=== PATIENT | male | born 1995 | race Two or more races ===

== ENCOUNTER 2024-01-20 02:10 | Emergency (ER) | payer OTHER ==
[~2024-01-20] VITALS: Ht 175.3 cm; Wt 101.4 kg
[2024-01-20] MEDS ORDERED: IBUP-2077 PO (02:18)
[2024-01-20 03:51] LABS: APPEARANCE,URINE CLEAR (CLEAR); BILIRUBIN,URINE NEGATIVE (NEGATIVE); COLOR,URINE LIGHT YELLOW (YELLOW); GLUCOSE, URINE (UA) NEGATIVE (NEGATIVE); KETONES,URINE NEGATIVE (NEGATIVE); LEUKOCYTE ESTERASE ,URINE LARGE (NEGATIVE); NITRATE,URINE NEGATIVE (NEGATIVE); OCCULT BLOOD,URINE NEGATIVE (NEGATIVE); PH,URINE 5.5 (5.0-8.0); PROTEIN,URINE NEGATIVE (NEGATIVE); SPECIFIC GRAVITIY, URINE 1.012 (1.003-1.030); UROBILINOGEN,URINE <=1.0 mg/dL (<=1.0)
[2024-01-20 04:08] LABS: BACTERIA,URINE None Seen /HPF (None Seen); RBC,URINE None Seen /HPF (0-2); SQUAMOUS EPITHELIAL CELL,UR None Seen /LPF (None Seen)
[2024-01-20] MEDS: LEVOFLOXACIN 500 MG TABLET PO ONE (05:28)
[2024-01-20] MEDS: CefTRIAXone SODIUM 1 GM/VIAL IM ONE (05:28)
[2024-01-20] MEDS: IBUPROFEN 600 MG TABLET PO ONE (05:28)
[2024-01-20] MEDS: LIDOCAINE/PF 1% 2 ML VIAL IM ONE (05:29)
[2024-01-20 06:00] VITALS: BP 120/72; PULSE 70; RESP 18; TEMP 98.4
== END 2024-01-20 06:14 | disposition home or self-care (01) ==
LOC: EMS 02:10
DX: N39.0 Urinary tract infection, site not specified (principal)
CPT/HCPCS: 99285; 81001; 87086; 87186; 76870; 96372; J0696; J3490